=== PATIENT | female | born 1970 | race American Indian/Alaskan Native ===

== ENCOUNTER 2016-09-22 14:10 | Inpatient (IN) | payer MEDICAID, OTHER ==
--- NOTE | 2016-09-22 15:30 | C.PDOC ---
History Of Present Illness 45 y/o female presents to emergency department requesting detox for heroin and alcohol. Patient reports last use was this morning. Denies any withdrawal symptoms, suicidal ideation, homicidal ideation, or other associated symptoms. Time Seen by Provider: 09/22/16 14:52 Chief Complaint (Nursing): Substance Abuse History Per: Patient History/Exam Limitations: no limitations Onset/Duration Of Symptoms: Persistent Current Symptoms Are (Timing): Still Present Modifying Factor(s): Alcohol, Narcotics Associated Symptoms: denies: Suicidal Thoughts, Suicidal Plan Recent travel outside of the [place]: No Past Medical History Reviewed: Historical Data, Nursing Documentation, Vital Signs Vital Signs: Last Vital Signs Temp 98 F 09/22/16 14:31 Pulse 100 H 09/22/16 14:31 Resp 20 09/22/16 14:31 BP 130/93 H 09/22/16 14:31 Pulse Ox 94 L 09/22/16 15:30 Family History: States: Unknown Family Hx - Social History Hx Alcohol Use: Yes Hx Substance Use: Yes - Immunization History Hx Tetanus Toxoid Vaccination: No Hx Influenza Vaccination: No Review Of Systems Except As Marked, All Systems Reviewed And Found Negative. Constitutional: Negative for: Fever, Chills Cardiovascular: Negative for: Chest Pain, Palpitations Respiratory: Negative for: Cough, Shortness of Breath, Wheezing Gastrointestinal: Negative for: Vomiting Skin: Negative for: Rash Psych: Negative for: Withdrawal Physical Exam - Physical Exam Appears: Non-toxic, No Acute Distress Skin: Warm, Dry Head: Atraumatic, Normacephalic Oral Mucosa: Moist Chest: Symmetrical Cardiovascular: Rhythm Regular Respiratory: Normal Breath Sounds, No Rales, No Rhonchi, No Wheezing Gastrointestinal/Abdominal: Soft, No Tenderness, No Guarding, No Rebound Back: Normal Inspection Extremity: Normal ROM, Capillary Refill (< 2 sec. ) Neurological/Psych: Oriented x3, Normal Speech, Normal Cognition ED Course And Treatment - Laboratory Results Result Diagrams: 09/22/16 15:26 09/22/16 15:26 O2 Sat by Pulse Oximetry: 94 (RA) Pulse Ox Interpretation: Normal Medical Decision Making Medical Decision Making: Labs, crisis eval ordered. 420: pt medically cleared, accepted to [facility] Disposition - Disposition Disposition: HOSPITALIZED Disposition Time: 16:22 Condition: STABLE Forms: [employer] (Luxembourgish) - Clinical Impression Clinical Impression: Opiate dependence, Alcohol dependence - Scribe Statement The provider has reviewed the documentation as recorded by the Scribe Kong Monten[place] All medical record entries made by the Scribe were at my direction and personally dictated by me. I have reviewed the chart and agree that the record accurately reflects my personal performance of the history, physical exam, medical decision making, and the department course for this patient. I have also personally directed, reviewed, and agree with the discharge instructions and disposition. Decision To Admit - Pt Status Changed To: Hospital Disposition Of: Inpatient - Admit Certification Admit to Inpatient:: After my assessment, the patient will require hospitalization for at least two midnights. This is because of the severity of symptoms shown, intensity of services needed, and/or the medical risk in this patient being treated as an outpatient. - InPatient: Physician Admission Certification: I certify that this patient requires 2 or more midnights of care for the following reason:: needs detox - . Bed Request Type: Detox Admitting Physician: Lisa Trevino Patient Diagnosis: Opiate dependence, Alcohol dependence
[2016-09-22 15:34] LABS: BASO % 0.9 % (0.0-2.0); EOS # 0.2 K/uL (0.0-0.7); EOS % 3.8 % (0.0-4.0); LYMPH # 2.2 K/uL (1.0-4.3); LYMPH % 41.5 % (20.0-40.0); MEAN CELL VOLUME 91.5 fL (81.0-99.0); MEAN CORPUSCULAR HEMOGLOBIN 29.7 pg (27.0-31.0); MEAN CORPUSCULAR HGB CONC 32.5 g/dL (33.0-37.0); MEAN PLATELET VOLUME 8.1 fL (7.2-11.7); MONO # 0.5 K/uL (0.0-0.8); MONO % 10.1 % (0.0-10.0); NRBC % 0.1 % (0.0-2.0); RED CELL DISTRIBUTION WIDTH 17.5 % (11.5-14.5); WHITE BLOOD COUNT 5.3 K/uL (4.8-10.8)
[2016-09-22 15:43] LABS: RBC URINE < 1 /hpf (0-3); URINE BACTERIA RARE (<OCC); URINE BILIRUBIN NEGATIVE (NEGATIVE); URINE BLOOD NEGATIVE (NEGATIVE); URINE COLOR Yellow (YELLOW); URINE GLUCOSE (UA) NORMAL (Normal); URINE KETONE TRACE mg/dL (NEGATIVE); URINE LEUKOCYTE ESTERASE NEG Leu/uL (Negative); URINE PROTEIN NEGATIVE (NEGATIVE); URINE UROBILINOGEN NORMAL mg/dL (0.2-1.0); WBC URINE 2 /hpf (0-5)
[2016-09-22 15:45] LABS: CHLORIDE 97 mmol/L (98-107)
[2016-09-22 15:46] LABS: POTASSIUM 3.2 mmol/L (3.6-5.2); SODIUM 140 mmol/L (132-148)
[2016-09-22] MEDS ORDERED: Potassium Chloride 20 mEq ER Tab PO STA (15:47)
[2016-09-22 15:48] LABS: ALB/GLOB RATIO 1.3 (1.0-2.1); ALKALINE PHOSPHATASE 70 U/L (38-126); ALT/SGPT 116 U/L (9-52); AST/SGOT 166 U/L (14-36); BILIRUBIN,TOTAL 0.6 mg/dL (0.2-1.3); BLOOD UREA NITROGEN 8 mg/dL (7-17); CARBON DIOXIDE 25 mmol/L (22-30); GFR AFRICAN-AMERICAN > 60; GLUCOSE,RANDOM 95 mg/dL (65-105); TOTAL PROTEIN 6.9 g/dL (6.3-8.3)
[2016-09-22 15:49] LABS: ALCOHOL SERUM 40 mg/dl (0-10)
[2016-09-22] MEDS ORDERED: Potassium Chloride 20 mEq ER Tab PO ONE (15:54)
--- NOTE | 2016-09-22 16:49 | PCM.BM ---
<Anabell Ruiz - Last Filed: 09/22/16 16:46> Treatment Plan Problems - Problems identified on initial assessmt Problem 2 Date Initiated: 09/22/16 Time Initiated: 16:47 Assessment reference: NA Status: Active alcohol abuse Date Initiated: 09/22/16 Time Initiated: 16:49 Assessment reference: NA Status: Active opiate abuse Date Initiated: 09/22/16 Time Initiated: 16:49 Assessment reference: NA Status: Active Treatment assets and liabiliti Patient Assests: cooperative, ADL independent, physically healthy Patient Liabilities: substance abuse - Milieu Protocol Maintain good personal hygiene: daily Encourage regular showers, daily Remind patient to perform daily oral care, daily Assist patient to perform ADL's Maintain personal safety: every shift Educate patient to report safety concerns to staff, every shift Monitor environment for contraband/sharps Medication safety: Monitor for expected outcome, potential side effects: every shift, Assess barriers to learning: every shift, Assess readiness for medication education: every shift <Lisa Trevino - Last Filed: 09/23/16 10:04> - Diagnosis (1) Alcohol dependence Status: Acute Interventions: 09/23/16 10:05 * Assess 7x/week regarding severity of withdrawal * Educate regarding risks, benefits, side effects and alternatives of medications * Use Motivational Interviewing for abstinence * Use CBT for relapse prevention * Medication management for withdrawal symptoms * Encourage medication assisted treatment * (2) Opiate dependence Status: Acute Interventions: 09/23/16 10:05 * Assess 7x/week regarding severity of withdrawal * Educate regarding risks, benefits, side effects and alternatives of medications * Use Motivational Interviewing for abstinence * Use CBT for relapse prevention * Medication management for withdrawal symptoms * Encourage medication assisted treatment * <Joslyn Watson - Last Filed: 09/26/16 10:35> Family Contact Family involvement: Famliy/SO not involved Family contact: Patient agrees to contact - Goals for Treatment Patient goals for treatment: Go to o/p addiction treatment and psychiatric care following detox. Discharge/Continuing Care - Education Needs Education Needs: Patient Medication, Patient Diagnosis/Disease Process, Patient Coping Skills, Patient Community resources - Discharge Discharge Criteria: Tolerates medication w/o severe side effects, Normal sleep pattern, No longer exhibiting s/s of withdrawal, Reduction of target symptoms Discharge to:: Home, With Family - Treatment Team Participation Patient/Family/SO Statement: 09/26/16 10:34 "I think outpatient treatment should be sufficient. I was already on medication maintenance and I don't wanna do that again." Was Patient/Family/SO present at Treatment Team Meeting: Yes
[2016-09-22] MEDS ORDERED: Vitamins A & D Oint UD Foilpak TOP PRN (17:37)
[2016-09-22] MEDS: Sodium Chloride Nasal 0.65% Soln (30ml) NAS PRN (22:27)
[2016-09-23] MEDS ORDERED: Aluminum Hydroxide/Magnesium Hydroxide Susp (30 mL) PO PRN (08:47)
[2016-09-23] MEDS ORDERED: Buprenorphine Hydrochloride 2 mg SL ONE ×3 (10:02→12:39)
[2016-09-23] MEDS: Pantoprazole 40 mg EC Tab PO SCH (10:59)
[2016-09-23] MEDS: Multiple Vitamins Tab PO SCH (11:00)
--- NOTE | 2016-09-23 13:40 | PCM.PSYCH ---
Initial Psychiatric Evaluation - Initial Psychiatric Evaluation Type of Admission: Voluntary Legal Status: Capacity Chief Complaint (in patient's own words): "I'm withdrawing" History of Present Illness and Precipitating Events: The pt is seen, chart reviewed and case discussed. She is a 45 yo AAF, single but has 6 children, aged 9 to 19. She is unemployed but finished college and wants to be a SW in few years. Lives with her youngest son, who is with the adult son now. She reports drinking 7-10 shots x3 months, heroin 7 bags intranasally x6 weeks. She started alcohol >20 years ago, heroin >15 years ago, but had 9 year sobriety. She has been to detox and rehab once, at [facility] and [facility] respectively She used methadone while Uses xanax 0.5 mg tid with rx, she claims She has depressive sxs and anxiety Past psych hx: Used meds but no admission or charan. Family psych hx: Alcohol and depression Medical hx: Denies Current Medications: Active Medications Generic Name Dose Route Start Last Admin Trade Name Freq PRN Reason Stop Dose Admin Al Hydrox/Mg Hydrox/Simethicone 30 ml 09/23/16 08:47 Maalox 30 Ml PO TID PRN Indigestion / Heartburn Clonidine HCl 0.1 mg 09/22/16 17:35 09/23/16 08:01 Catapres PO 0.1 mg Q8 PRN Administration opiate withdrawal Folic Acid 1 mg 09/23/16 10:00 09/23/16 11:00 Folic Acid PO 1 mg DAILY ROSIE Administration Ibuprofen 600 mg 09/22/16 19:34 09/23/16 08:01 Motrin Tab PO 600 mg Q6 PRN Administration pain Loperamide HCl 2 mg 09/23/16 08:47 Imodium PO Q8 PRN Diarrhea Lorazepam 1 mg 09/22/16 21:31 Ativan PO Q4H PRN Symptoms of alcohol withdrawl Lorazepam 2 mg 09/22/16 21:45 09/23/16 10:59 Ativan PO 09/27/16 21:44 2 mg Q6H ROSIE Administration Taper Multivitamins 1 tab 09/23/16 10:00 09/23/16 11:00 Hexavitamin PO 1 tab DAILY ROSIE Administration Ondansetron HCl 4 mg 09/23/16 08:47 Zofran Tab PO Q8 PRN Nausea/Vomiting Pantoprazole Sodium 40 mg 09/23/16 10:00 09/23/16 10:59 Protonix Ec Tab PO 40 mg DAILY ROSIE Administration Pneumococcal Polyvalent Vaccine 0.5 ml 09/24/16 09:00 Pneumovax 23 Vaccine IM 09/24/16 09:01 .ONCE ONE Sodium Chloride 0 ml 09/22/16 22:13 09/22/16 22:27 Wharton Baby Saline 30 Ml JARON 1 ml Q8 PRN Administration stuffy nose Thiamine HCl 100 mg 09/23/16 10:00 09/23/16 11:00 Vitamin B1 Tab PO 100 mg DAILY ROSIE Administration Trazodone HCl 50 mg 09/22/16 21:31 09/22/16 22:09 Desyrel PO 50 mg HS PRN Administration Insomnia Vitamin A 1 ea 09/22/16 17:37 09/22/16 17:56 Vitamin A & D Oint Ud Foilpak TOP 1 ea BID PRN Administration Dry skin Past Psychiatric History - Past Psychiatric History Previous Treatment History: Intensive Outpatient Pertinent Medical Hx (Current Medical&Sleep Prob, Allergies): Allergies Allergy/AdvReac Type Severity Reaction Status Date / Time No Known Allergies Allergy Unverified 09/22/16 15:04 Daily Alise 1 tab PO DAILY 09/22/16 Loratadine [Claritin] 1 tab PO DAILY 09/22/16 Omeprazole 1 tab PO DAILY 09/22/16 buPROPion SR [Wellbutrin SR 150 MG] 1 tab PO BID 09/22/16 hydrOXYzine Pamoate [Vistaril] 1 tab PO TID 09/22/16 Review of Systems - Psychiatric Psychiatric: Abnormal Sleep Pattern, Anxiety, Change in Libido, Hallucinations, Irritability, Panic Attacks. absent: Homicidal Ideation, Suicidal Ideation Mental Status Examination - Personal Presentation Personal Presentation: Looks stated age - Affect Affect: Broad - Motor Activity Motor Activity: Calm - Reliability in Providing Information Reliability in Providing Information: Good - Speech Speech: Organized - Mood Mood: Anxious - Formal Thought Process Formal Thought Process: No Impairment - Cognitive Functions Orientation: Person, Place, Situation, Time Sensorium: Alert Attention/Concentration: Attentive Estimate of Intelligence: Average Judgement: Intact, as evidence by: Insight regarding need for hospitalization Memory: Recent intact, as evidence by: Ability to recall events of the day, Remote intact, as evidenced by: Abilit to recall sig. life events - Risk Risk: Seizure, Withdrawal, Diminished functioning - Strength & Assets Inventory Strength & Assets Inventory: Cooperative - Limitations Limitations: Living alone DSM 5 DX - DSM 5 DSM 5 Diagnosis: Opioid withdrawal opioid use d/o - severe Alcohol withdrawal Alcohol use d/o - severe ANDREA Depressive d/o - unspecified - Recommended/Plan of Treatment Treatment Recommendations and Plan of Treatment: Subutex detox for opiods Ativan detox for alcohol As needed meds [place] and CBT Attend groups and activities Support and psychoeducation Consider MAT Refer to IOP or rehab 34 min Projected ELOS: 5 days Prognosis: good w treatment - Smoking Cessation Smoking Cessation Initiated: Yes
[2016-09-24] MEDS ORDERED: Pneumococcal 23-Valent Vaccine IM ONE (09:00)
[2016-09-24] MEDS: Pantoprazole 40 mg EC Tab PO SCH (09:29)
[2016-09-24] MEDS: Multiple Vitamins Tab PO SCH (09:30)
[2016-09-24] MEDS: Buprenorphine Hydrochloride 2 mg SL SCH (09:37)
[2016-09-24 11:40] VITALS: RESP 18
[2016-09-24] MEDS: buPROPion SR 150 MG TABLET PO SCH (12:25)
--- NOTE | 2016-09-24 23:16 | PCM.PYCHPN ---
Psychiatric Progress Note - Psychiatric Progress Note Patient seen today, length of contact: 17 minutes Patient Chief Complaint: I have anxiety and tremors Problems Identified/Issues Discussed: The pt is seen, chart reviewed, case discussed with staff. The pt is compliant with medications and reports no side-effects. She reported that she reported that she is feeling OK. She denied A/V/H. She reported improvement in symptoms, but needs more time to stabilize.~ After care discussed, support and psychoeducation given. Diagnostic Results: no new lab result DSM 5 Symptoms Update: Opioid use disorder, severe Medication Change: Yes (start Wellbutrin and subtex detox protocol) Medical Record Reviewed: Yes Mental Status Examination - Cognitive Function Orientation: Person, Place, Situation, Time Memory: Intact Attention: WNL Concentration: WNL Association: WNL Fund of Knowledge: WNL - Mood Mood: Anxious - Affect Affect: Constricted - Speech Speech: Appropriate - Formal Thought Process Formal Thought Process: No Impairment - Suicidal Ideation Suicidal Ideation: No - Homicidal Ideation Homicidal Ideation: No Goal/Treatment Plan - Goal/Treatment Plan Need for Continued Stay: Severe depression anxiety, Discharge may exacerbated symptoms Progress Toward Problem(s) and Goals/Treatment Plan: Subutex detox for opiods Ativan detox for alcohol Start Wellbutrin SR for depression As needed meds MD and CBT Attend groups and activities Support and psychoeducation Consider MAT Refer to IOP or rehab Estimated Date of D/C: 09/27/16 - Smoking Cessation Smoking Cessation Initiated: Yes
[2016-09-25] MEDS: Pantoprazole 40 mg EC Tab PO SCH (09:03)
[2016-09-25] MEDS: Multiple Vitamins Tab PO SCH (09:03)
[2016-09-25] MEDS: Buprenorphine Hydrochloride 2 mg SL SCH (09:04)
[2016-09-25] MEDS: buPROPion SR 150 MG TABLET PO SCH (09:06)
--- NOTE | 2016-09-25 19:49 | PCM.PYCHPN ---
Psychiatric Progress Note - Psychiatric Progress Note Patient seen today, length of contact: 17 minutes Patient Chief Complaint: I'm feeling anxious Problems Identified/Issues Discussed: The pt is seen, chart reviewed, case discussed with staff. The pt is compliant with medications and reports no side-effects. She reported that she reported that she is feeling anxious. She denied A/V/H. She reported improvement in withdrawal symptoms, but needs more time to stabilize. After care discussed, support and psychoeducation given. Diagnostic Results: no new lab result Medication Change: Yes (start Wellbutrin and subtex detox protocol) Medical Record Reviewed: Yes Mental Status Examination - Cognitive Function Orientation: Person, Place, Situation, Time Memory: Intact Attention: WNL Concentration: WNL Association: WNL Fund of Knowledge: WNL - Mood Mood: Anxious Additional comments: I'm feeling anxious - Affect Affect: Constricted - Speech Speech: Appropriate - Formal Thought Process Formal Thought Process: No Impairment - Suicidal Ideation Suicidal Ideation: No - Homicidal Ideation Homicidal Ideation: No Goal/Treatment Plan - Goal/Treatment Plan Need for Continued Stay: Severe depression anxiety, Discharge may exacerbated symptoms Progress Toward Problem(s) and Goals/Treatment Plan: Subutex detox for opiods Ativan detox for alcohol Start Wellbutrin SR for depression As needed meds for anxiety, sleep ID and CBT Attend groups and activities Support and psychoeducation Consider MAT Refer to IOP or rehab Estimated Date of D/C: 09/27/16 - Smoking Cessation Smoking Cessation Initiated: Yes
[2016-09-26] MEDS: Multiple Vitamins Tab PO SCH (09:10)
[2016-09-26] MEDS: Pantoprazole 40 mg EC Tab PO SCH (09:11)
[2016-09-26] MEDS: buPROPion SR 150 MG TABLET PO SCH (09:11)
[2016-09-26] MEDS: Sodium Chloride Nasal 0.65% Soln (30ml) NAS PRN (09:12)
[2016-09-26] MEDS: Buprenorphine Hydrochloride 2 mg SL SCH (09:13)
--- NOTE | 2016-09-26 11:07 | PCM.PYCHPN ---
Psychiatric Progress Note - Psychiatric Progress Note Patient seen today, length of contact: 16 minutes Patient Chief Complaint: "I couldn't sleep" Problems Identified/Issues Discussed: The pt is seen, chart reviewed, case discussed with staff. Support given, CBT and MA used briefly No new symptoms reported, improving slowly and needs some more time No SEs from medications, risks discussed. After care discussed. She is now interested in suboxone and CRC Medication Change: Yes (detox changes daily) Medical Record Reviewed: Yes Mental Status Examination - Cognitive Function Orientation: Person, Place, Situation, Time Memory: Intact Attention: WNL Concentration: WNL Association: WNL Fund of Knowledge: WNL - Mood Mood: Anxious - Affect Affect: Constricted - Speech Speech: Appropriate - Formal Thought Process Formal Thought Process: No Impairment - Suicidal Ideation Suicidal Ideation: No - Homicidal Ideation Homicidal Ideation: No Goal/Treatment Plan - Goal/Treatment Plan Need for Continued Stay: Severe depression anxiety, Discharge may exacerbated symptoms Progress Toward Problem(s) and Goals/Treatment Plan: Subutex detox for opiods Ativan detox for alcohol As needed meds MA and CBT Attend groups and activities Support and psychoeducation Consider MAT Refer to IOP or rehab Estimated Date of D/C: 09/27/16
[2016-09-26] MEDS ORDERED: Magnesium Hydroxide Susp 30 ml UD PO ONE (14:00)
--- NOTE | 2016-09-27 08:52 | PCM.PYCHDC ---
Mental Status Examination - Mental Status Examination Orientation: Person, Place, Situation, Time Memory: Intact Mood: Anxious Affect: Constricted Speech: Appropriate Attention: WNL Concentration: WNL Association: WNL Fund of Knowledge: WNL Formal Thought Process: No Impairment Suicidal Ideation: No Current Homicidal Ideation?: No Discharge Summary - Discharge Note Reason for Hospitalization: Opioid detox Psychiatric History (includes Medical, Family, Personal Hx): Depression Consultations:: List each consultation separately and include: 1. Reason for request. 2. Findings. 3. Follow-up Summary of Hospital Course include:: 1. Description of specific treatment plan utilized for patients during their course of treatmen. 2. Summarize the time- course for resolution of acute symptoms and/or regressed behaviors. 3. Describe issues identified and worked on during hospitalization. 4. Describe medication utilized. 5. Describe medical problems identified and treated. 6. Reassessment of suicide risk Summary of Hospital Course: On admission: The pt is seen, chart reviewed and case discussed. She is a 45 yo AAF, single but has 6 children, aged 9 to 19. She is unemployed but finished college and wants to be a SW in few years. Lives with her youngest son, who is with the adult son now. She reports drinking 7-10 shots x3 months, heroin 7 bags intranasally x6 weeks. She started alcohol >20 years ago, heroin >15 years ago, but had 9 year sobriety. She has been to detox and rehab once, at [facility] and [facility] respectively She used methadone while Uses xanax 0.5 mg tid with rx, she claims She has depressive sxs and anxiety Hospital course: The pt was admitted and started on treatment with psychotherapy, support, psychoeducation and medications. MO and CBT used. The pt attended groups and activities, as well as milieu therapy. All the risks and benefits of medications are discussed and the patient understood and agreed. She is continued on wellbutrin and was overall OK The pt improved with the treatments provided. After care discussed with the patient. Referred to OP at [facility] but will also see Dr Browning for suboxone - Final Diagnosis (DSM 5) Condition upon Discharge: STABLE DSM 5: Opioid withdrawal opioid use d/o - severe Alcohol withdrawal Alcohol use d/o - severe ANDREA Depressive d/o - unspecified Disposition: HOME/ ROUTINE Follow-up Treatment Plan: Continue below medications after discharge. Follow after care plan as discussed. [facility] and [facility] (for suboxone) Use relapse prevention skills Return to ER or call 911 if suicidal, homicidal or symptoms relapse. Stay away from stress, alcohol and drugs. See primary doctor once a year. Prescriptions/Medication Reconciliation: buPROPion SR [Wellbutrin SR 150 MG] 150 mg PO DAILY #30 tab Pantoprazole [Protonix EC Tab] 40 mg PO DAILY #30 ect QUEtiapine [Seroquel] 100 mg PO HS #30 tab traZODone [Desyrel] 100 mg PO HS PRN #30 tab PRN Reason: Insomnia - Smoking Cessation Smoking Cessation Medication prescribed: No - Antipsychotic Medications Pt discharged on 2 or more routine antipsychotic medications: No
[2016-09-27] MEDS: Pantoprazole 40 mg EC Tab PO SCH (09:27)
[2016-09-27] MEDS: Multiple Vitamins Tab PO SCH (09:27)
[2016-09-27] MEDS: Buprenorphine Hydrochloride 2 mg SL SCH (09:27)
[2016-09-27] MEDS: Sodium Chloride Nasal 0.65% Soln (30ml) NAS PRN (09:28)
[2016-09-27] MEDS: buPROPion SR 150 MG TABLET PO SCH (09:41)
[2016-09-27 10:06] VITALS: BP 130/83; PULSE 90; TEMP 98.5; O2SAT 99
== END 2016-09-27 11:14 | disposition home or self-care (01) | DRG 745 ==
LOC: C.ER 14:10 → C.7D 16:23
PROVIDERS: ADMIT Psychiatry & Neurology Psychiatry; ATTEND Psychiatry & Neurology Psychiatry
PROC: HZ2ZZZZ Detoxification Services for Substance Abuse Treatment (ICD-10-PCS; principal; 2016-09-22)
PROC: HZ59ZZZ Individual Psychotherapy for Substance Abuse Treatment, Supportive (ICD-10-PCS; 2016-09-22)
PROC: HZ46ZZZ Group Counseling for Substance Abuse Treatment, Psychoeducation (ICD-10-PCS; 2016-09-22)
PROC: GZ3ZZZZ Medication Management (ICD-10-PCS; 2016-09-22)
DX: F11.23 Opioid dependence with withdrawal (principal); F10.239 Alcohol dependence with withdrawal, unspecified; F32.9 Major depressive disorder, single episode, unspecified; F41.1 Generalized anxiety disorder

== ENCOUNTER 2017-12-01 19:06 | Inpatient (IN) | payer MEDICAID ==
--- NOTE | 2017-12-01 20:04 | C.PDOC ---
History Of Present Illness 46 year old female presents to the ED requesting opioid detox. Patient was prescreened and admits her last use was this morning. Patient denies any other drug abuse. Patient is asymptomatic while in the ED. Patient denies SI/HI, laboy ucinations, other complications. Time Seen by Provider: 12/01/17 20:04 Chief Complaint (Nursing): Substance Abuse History Per: Patient History/Exam Limitations: no limitations Onset/Duration Of Symptoms: Hrs Current Symptoms Are (Timing): Still Present Suicide/Self Injury Attempted (Context): None Modifying Factor(s): Other (Opioids) Associated Symptoms: denies: Depression, Suicidal Thoughts, Suicidal Plan Involuntary Hold By: None Recent travel outside of the [place]: No Additional History Per: Patient Past Medical History Reviewed: Historical Data, Nursing Documentation, Vital Signs Vital Signs: Last Vital Signs Temp 98.5 F 12/01/17 19:59 Pulse 102 H 12/01/17 19:59 Resp 18 12/01/17 19:59 BP 179/105 H 12/01/17 19:59 Pulse Ox 98 12/01/17 19:59 - Medical History PMH: Depression, HTN Denies: Diabetes, Hepatitis, HIV, Seizures, Sexually Transmitted Disease Surgical History: No Surg Hx - [facility] DETOXIFICATION SERVICES FOR SUBSTANCE ABUSE TREATMENT (09/22/16) GROUP TRANSITIONAL CARE MANAGER FOR SUBSTANCE ABUSE TREATMENT, PSYCHOEDUCATION (09/22/16) INDIV PSYCHOTHERAPY FOR SUBSTANCE ABUSE TREATMENT, SUPPORT (09/22/16) MEDICATION MANAGEMENT (09/22/16) Family History: States: Unknown Family Hx - Social History Hx Alcohol Use: Yes Hx Substance Use: Yes - Immunization History Hx Tetanus Toxoid Vaccination: No Hx Influenza Vaccination: No Hx Pneumococcal Vaccination: No Review Of Systems Constitutional: Negative for: Fever, Chills Eyes: Negative for: Vision Change Cardiovascular: Negative for: Chest Pain Respiratory: Negative for: Shortness of Breath Gastrointestinal: Negative for: Nausea, Vomiting Psych: Negative for: Depression, Suicidal ideation Physical Exam - Physical Exam Appears: Non-toxic, No Acute Distress Skin: Normal Color, Warm, Dry Head: Atraumatic, Normacephalic Eye(s): bilateral: Normal Inspection Neck: Normal ROM, Supple Chest: Symmetrical Cardiovascular: Rhythm Regular Respiratory: Normal Breath Sounds, No Rales, No Rhonchi, No Wheezing Gastrointestinal/Abdominal: Soft, No Tenderness, No Guarding, No Rebound Extremity: Normal ROM, No Tenderness, No Swelling Neurological/Psych: Oriented x3, Normal Speech, Normal Cognition Gait: Steady ED Course And Treatment - Laboratory Results Result Diagrams: 12/01/17 20:21 12/01/17 20:21 O2 Sat by Pulse Oximetry: 98 (ON RA) Pulse Ox Interpretation: Normal - Physician Consult Information Time Consulting Physician Contacted: 21:04 Outcome Of Conversation: MED CLEAR FOR DETOX. CRISIS NOTIFIED Medical Decision Making Medical Decision Making: Plan: * Labs * Crisis * UA Disposition Counseled Patient/Family Regarding: Studies Performed, Diagnosis - Disposition Disposition: HOSPITALIZED Disposition Time: 21:46 Condition: STABLE Forms: [facility] (Kazakh) - POA Present On Arrival: Poor Glycemic Control - Clinical Impression Clinical Impression: Opiate dependence - Scribe Statement The provider has reviewed the documentation as recorded by the Scribe Bubba Gibson All medical record entries made by the Scribe were at my direction and personally dictated by me. I have reviewed the chart and agree that the record accurately reflects my personal performance of the history, physical exam, medical decision making, and the department course for this patient. I have also personally directed, reviewed, and agree with the discharge instructions and disposition.
[2017-12-01 20:24] LABS: BASO # 0.1 K/uL (0.0-0.2); BASO % 0.8 % (0.0-2.0); EOS % 0.5 % (0.0-4.0); HEMOGLOBIN 11.7 g/dL (11.0-16.0); LYMPH # 1.4 K/uL (1.0-4.3); LYMPH % 19.9 % (20.0-40.0); MEAN CELL VOLUME 84.3 fL (81.0-99.0); MEAN CORPUSCULAR HGB CONC 33.3 g/dL (33.0-37.0); MEAN PLATELET VOLUME 8.6 fL (7.2-11.7); MONO # 0.3 K/uL (0.0-0.8); MONO % 3.7 % (0.0-10.0); NEUT # 5.3 K/uL (1.8-7.0); NEUT % 75.1 % (50.0-75.0); NRBC % 0.3 % (0.0-2.0); RBC 4.16 Mil/uL (3.80-5.20); RED CELL DISTRIBUTION WIDTH 15.9 % (11.5-14.5)
[2017-12-01 20:26] LABS: SQUAMOUS EPITHIAL 1 /hpf (0-5); URINE BILIRUBIN NEGATIVE (NEGATIVE); URINE BLOOD NEGATIVE (NEGATIVE); URINE CLARITY Clear (Clear); URINE COLOR Yellow (YELLOW); URINE GLUCOSE (UA) 3+ mg/dL (Normal); URINE LEUKOCYTE ESTERASE NEG Leu/uL (Negative); URINE PROTEIN NEGATIVE (NEGATIVE)
[2017-12-01 20:37] LABS: ALB/GLOB RATIO 1.3 (1.0-2.1); ALBUMIN 4.6 g/dL (3.5-5.0); ALT/SGPT 39 U/L (9-52); AST/SGOT 30 U/L (14-36); BLOOD UREA NITROGEN 10 mg/dL (7-17); CALCIUM 10.5 mg/dl (8.6-10.4); GFR NON-AFRICAN AMERICAN > 60
[2017-12-01 20:54] LABS: BARBITURATES, UR NEGATIVE (NEGATIVE); BENZODIAZEPINES, UR NEGATIVE (NEGATIVE); PHENCYCLIDINE, UR NEGATIVE (NEGATIVE)
[2017-12-01 20:58] LABS: OPIATES, UR POSITIVE (NEGATIVE)
[2017-12-01] MEDS ORDERED: (Novolin R) Insulin Human Regular 100 units/ml vial SC STA (21:41)
[2017-12-01] MEDS ORDERED: (Novolin R) Insulin Human Regular 100 units/ml vial ONE (22:03)
--- NOTE | 2017-12-01 22:33 | PCM.BM ---
Treatment Plan Problems - Problems identified on initial assessmt potential for opiate withdrawal Date Initiated: 12/01/17 Time Initiated: 22:32 Status: Active Treatment assets and liabiliti Patient Assests: cooperative, ADL independent, physically healthy Patient Liabilities: substance abuse - Milieu Protocol Maintain good personal hygiene: daily Encourage regular showers, daily Remind patient to perform daily oral care, daily Assist patient to perform ADL's Conduct patient checks and document Observation sheet: Q15 minutes Maintain personal safety: every shift Educate patient to report safety concerns to staff, every shift Monitor environment for contraband/sharps Medication safety: Monitor for expected outcome, potential side effects: every shift, Assess barriers to learning: every shift, Assess readiness for medication education: every shift
[2017-12-02] MEDS ORDERED: Aluminum Hydroxide/Magnesium Hydroxide Susp (30 mL) PO PRN (00:46)
[2017-12-02] MEDS ORDERED: buPROPion SR 150 MG TABLET PO SCH (10:00)
[2017-12-02] MEDS ORDERED: Pantoprazole 40 mg EC Tab PO SCH (10:00)
--- NOTE | 2017-12-02 11:15 | PCM.PSYCH ---
Initial Psychiatric Evaluation - Initial Psychiatric Evaluation Type of Admission: Voluntary Legal Status: Capacity Chief Complaint (in patient's own words): I came in to get help.' History of Present Illness and Precipitating Events: This is a 46 years old female, who is currently unemployed, came to the [facility] ED to get help in opioid detox. Patient denies any past history of any inpatient psychiatric hospitalizations but reports of attending [facility] in [facility]. Patient reports history of few detoxes in the past. Her last detox was at . She reports of abusing 6-10 bags daily. As per the patient last night, she abused almost 6 bags, started developing withdrawal symptoms, so yesterday she came in to get help in detox. Patient reports withdrawal symptoms including nausea, sweating, shakes, headaches, joint pain, hot flashes, runny nose and anxiety. Patient reports anxiety but denies any depressed mood or any feelings of hopelessness, helplessness or worthlessness. Patient denies any auditory or visual hallucinations or any psychotic symptoms. She denies any suicidal ideation or homicidal ideation. He denies any manic symptoms. PMH: DM, HTN Current Medications: Active Medications Generic Name Dose Route Start Last Admin Trade Name Freq PRN Reason Stop Dose Admin Acetaminophen 650 mg 12/02/17 00:46 12/02/17 08:15 Tylenol 325mg Tab PO 650 mg Q4H PRN Administration Fever greater than 101 F Al Hydrox/Mg Hydrox/Simethicone 30 ml 12/02/17 00:46 Maalox 30 Ml PO TID PRN Indigestion / Heartburn Bupropion HCl 150 mg 12/02/17 10:00 12/02/17 09:52 Wellbutrin Sr 150 Mg PO 150 mg DAILY ROSIE Administration Clonidine HCl 0.1 mg 12/02/17 00:46 12/02/17 08:15 Catapres PO 0.1 mg Q8 PRN Administration COWS Score More or Equal to 5 Enalapril Maleate 5 mg 12/02/17 10:00 12/02/17 09:52 Vasotec PO 5 mg DAILY ROSIE Administration Loperamide HCl 2 mg 12/02/17 00:46 Imodium PO Q8 PRN Diarrhea Metformin HCl 750 mg 12/02/17 10:00 12/02/17 09:52 Glucophage Xr PO 750 mg DAILY ROSIE Administration Ondansetron HCl 4 mg 12/02/17 00:46 Zofran Tab PO Q8 PRN Nausea/Vomiting Pantoprazole Sodium 40 mg 12/02/17 10:00 12/02/17 09:52 Protonix Ec Tab PO 40 mg DAILY ROSIE Administration Pseudoephedrine HCl 60 mg 12/02/17 00:46 Sudafed Tab PO QID PRN Nasal/Sinus Congestion Trazodone HCl 50 mg 12/02/17 22:00 Desyrel PO HS ROSIE Past Psychiatric History - Past Psychiatric History Previous Treatment History: Inpatient Pertinent Medical Hx (Current Medical&Sleep Prob, Allergies): Allergies Allergy/AdvReac Type Severity Reaction Status Date / Time No Known Allergies Allergy Unverified 09/22/16 15:04 Daily Alise 1 tab PO DAILY 09/22/16 Omeprazole 1 tab PO DAILY 09/22/16 buPROPion SR [Wellbutrin SR 150 MG] 150 mg PO DAILY #30 tab 09/27/16 Enalapril Maleate [Vasotec] 5 mg PO DAILY 12/01/17 metFORMIN ER [glucoPHAGE XR] 750 mg PO DAILY 12/01/17 Review of Systems - Review of Systems All systems: reviewed and no additional remarkable complaints except - Psychiatric Psychiatric: Anxiety, Irritability. absent: Suicidal Ideation Mental Status Examination - Personal Presentation Personal Presentation: Looks stated age - Affect Affect: Constricted - Motor Activity Motor Activity: Calm - Reliability in Providing Information Reliability in Providing Information: Fair - Speech Speech: Organized - Mood Mood: Anxious - Formal Thought Process Formal Thought Process: No Impairment - Obsessions/Compulsions Obsessions: No Compulsions: No - Cognitive Functions Orientation: Person, Place, Situation, Time Sensorium: Alert Attention/Concentration: Attentive Abstract Thinking: [place] Estimate of Intelligence: Below average Judgement: Imparied, as evidence by: Poor judgement, Intact, as evidence by: Insight regarding need for hospitalization - Risk Risk: Withdrawal, Diminished functioning - Limitations Limitations: Living alone DSM 5 DX - DSM 5 DSM 5 Diagnosis: Opioid withdrawal Oopioid use d/o- severe - Recommended/Plan of Treatment Treatment Recommendations and Plan of Treatment: Opioid withdrawal Oopioid use d/o- severe HTN DM Taper with methadone Gabapentin for augmentation if needed As needed medications All risks, benefits and alternatives of the meds discussed, and the pt agreed and understood. Attend groups and activities Supportive therapy and psychoeducation HI for abstinence CBT for relapse prevention Encourage MAT Refer to rehab or IOP, and self-help groups Smoking cessation with HI Nicotine patch if needed - Smoking Cessation Smoking Cessation Initiated: No
[2017-12-02 14:19] VITALS: O2SAT 99
[2017-12-02 15:52] VITALS: BP 126/84; PULSE 82; RESP 19; TEMP 98.9
--- NOTE | 2017-12-03 23:52 | PCM.PYCHDC ---
Mental Status Examination - Mental Status Examination Orientation: Person, Place, Situation, Time Memory: Intact Mood: Neutral Affect: Constricted Speech: Soft Attention: WNL Concentration: WNL Association: WNL Fund of Knowledge: WNL Formal Thought Process: No Impairment Description of patient's judgement and insight: partially impaired Psychotic Thoughts and Behaviors: denies any AVH Suicidal Ideation: No Current Homicidal Ideation?: No Discharge Summary - Discharge Note Reason for Hospitalization: This is a 46 years old female, who is currently unemployed, came to the [facility] ED to get help in opioid detox. Patient denies any past history of any inpatient psychiatric hospitalizations but reports of attending [facility] in [facility]. Patient reports history of few detoxes in the past. Her last detox was at . She reports of abusing 6-10 bags daily. As per the patient last night, she abused almost 6 bags, started developing withdrawal symptoms, so yesterday she came in to get help in detox. Patient reports withdrawal symptoms including nausea, sweating, shakes, headaches, joint pain, hot flashes, runny nose and anxiety. Patient reports anxiety but denies any depressed mood or any feelings of hopelessness, helplessness or worthlessness. Patient denies any auditory or visual laboy ucinations or any psychotic symptoms. She denies any suicidal ideation or homicidal ideation. He denies any manic symptoms. Consultations:: List each consultation separately and include: 1. Reason for request. 2. Findings. 3. Follow-up Summary of Hospital Course include:: 1. Description of specific treatment plan utilized for patients during their course of treatmen. 2. Summarize the time- course for resolution of acute symptoms and/or regressed behaviors. 3. Describe issues identified and worked on during hospitalization. 4. Describe medication utilized. 5. Describe medical problems identified and treated. 6. Reassessment of suicide risk Summary of Hospital Course: Patient received medications and reported that she is feeling better. She demanded to sign out AMA. However, patient denied any feelings of hopelessness, helplessness, and worthlessness, denied any problem with the sleep or appetite, denied suicidal ideation or homicidal ideation. Pt denied any auditory or visual hallucinations. She denied any withdrawal symptoms. - Final Diagnosis (DSM 5) Condition upon Discharge: STABLE DSM 5: Opioid withdrawal Oopioid use d/o- severe Disposition: AGAINST MEDICAL ADVICE Follow-up Treatment Plan: Education: Pt was educated and counseled about the risks and benefits of taking and not taking medications. Pt was educated and counseled about the risks of drinking and abusing drugs. Pt was educated and counseled to go to the ER or call 911 if pt develop suicidal ideation or homicidal ideation, worsening of symptoms or severe side effects of the meds. - Smoking Cessation Smoking Cessation Medication prescribed: No - Antipsychotic Medications Pt discharged on 2 or more routine antipsychotic medications: No
== END 2017-12-02 17:08 | disposition left against medical advice (07) | DRG 770 ==
LOC: C.ER 19:06 → C.7D 21:42
PROVIDERS: ADMIT Psychiatry & Neurology Psychiatry; ATTEND Psychiatry & Neurology Psychiatry
PROC: HZ2ZZZZ Detoxification Services for Substance Abuse Treatment (ICD-10-PCS; principal; 2017-12-01)
PROC: HZ52ZZZ Individual Psychotherapy for Substance Abuse Treatment, Cognitive-Behavioral (ICD-10-PCS; 2017-12-01)
PROC: HZ59ZZZ Individual Psychotherapy for Substance Abuse Treatment, Supportive (ICD-10-PCS; 2017-12-01)
PROC: HZ56ZZZ Individual Psychotherapy for Substance Abuse Treatment, Psychoeducation (ICD-10-PCS; 2017-12-01)
PROC: HZ42ZZZ Group Counseling for Substance Abuse Treatment, Cognitive-Behavioral (ICD-10-PCS; 2017-12-01)
PROC: HZ46ZZZ Group Counseling for Substance Abuse Treatment, Psychoeducation (ICD-10-PCS; 2017-12-01)
PROC: GZHZZZZ Group Psychotherapy (ICD-10-PCS; 2017-12-01)
PROC: GZ58ZZZ Individual Psychotherapy, Cognitive-Behavioral (ICD-10-PCS; 2017-12-01)
PROC: GZ56ZZZ Individual Psychotherapy, Supportive (ICD-10-PCS; 2017-12-01)
DX: F11.23 Opioid dependence with withdrawal (principal); I10 Essential (primary) hypertension; E11.9 Type 2 diabetes mellitus without complications; F41.9 Anxiety disorder, unspecified